=== PATIENT | male | born 1960 | race Caucasian/White ===

== ENCOUNTER 2020-03-25 17:57 | Inpatient (IN) | payer OTHER ==
[2020-03-25 21:26] LABS: BASO % 0.6 % (0-2.0); EOS % 1.1 % (0-4.5); HEMATOCRIT 35.8 % (35.4-49); HEMOGLOBIN 12.3 GM/dL (11.7-16.9); LYMPH % 13.8 % (8-40); MCH 34.8 pg (25.7-33.7); MCHC 34.4 g/dl (32.0-35.9); MEAN CELL VOLUME 101.2 fl (80-96); MEAN PLT VOLUME 7.2 fl (7.5-11.1); MONO % 11.3 % (3.8-10.2); NEUT % 73.2 % (42.8-82.8); PLATELET COUNT 261 K/MM3 (134-434); RBC 3.54 M/mm3 (4.00-5.60); RDW 13.9 % (11.9-15.9)
[2020-03-25 21:48] LABS: POTASSIUM 3.9 mmol/L (3.5-5.1)
[2020-03-25 21:50] LABS: ALBUMIN 3.4 g/dl (3.4-5.0)
[2020-03-25 21:51] LABS: BLOOD UREA NITROGEN 17.2 mg/dL (7-18); CALCIUM 8.9 mg/dL (8.5-10.1)
[2020-03-25 21:56] LABS: BILIRUBIN,TOTAL 0.2 mg/dL (0.2-1); TOT PROT 6.5 g/dl (6.4-8.2)
[2020-03-25] MEDS ORDERED: levETIRAcetam 500 MG TABLET (FP) PO ONE (23:25)
[2020-03-25] MEDS: levETIRAcetam 500 MG TABLET (FP) PO SCH (23:26)
[2020-03-26] MEDS ORDERED: levETIRAcetam 500 MG TABLET (FP) PO ONE (08:45)
[2020-03-26] MEDS: levETIRAcetam 500 MG TABLET (FP) PO SCH ×2 (09:00→21:54)
[2020-03-26] MEDS ORDERED: HALOPERIDOL LACTATE 5 MG/ML IM ONE ×2 (09:19→10:45)
[2020-03-26] MEDS ORDERED: HALOPERIDOL LACTATE 5 MG/ML ONE (09:24)
[2020-03-26] MEDS ORDERED: LORazepam 2 MG/ML SDV VIAL IM ONE (10:45)
[2020-03-26] MEDS ORDERED: LORazepam 2 MG/ML SDV VIAL ONE (10:48)
[2020-03-26] MEDS ORDERED: LORazepam 2 MG/ML SDV VIAL IM PRN (13:22)
[2020-03-26 14:55] VITALS: BMI 27.6
[2020-03-26 19:00] LABS: BASO % 0.4 % (0-2.0); EOS % 1.6 % (0-4.5); HEMATOCRIT 36.1 % (35.4-49); HEMOGLOBIN 12.3 GM/dL (11.7-16.9); LYMPH % 15.4 % (8-40); MCH 34.5 pg (25.7-33.7); MEAN CELL VOLUME 101.5 fl (80-96); MEAN PLT VOLUME 7.6 fl (7.5-11.1); MONO % 14.6 % (3.8-10.2); PLATELET COUNT 254 K/MM3 (134-434); RBC 3.55 M/mm3 (4.00-5.60); RDW 14.1 % (11.9-15.9); WHITE BLOOD COUNT 9.9 K/mm3 (4.0-10.0)
[2020-03-26] MEDS ORDERED: PT OWN MED DRAWER 7, Y5N ONE (21:31)
[2020-03-26] MEDS: OLANZapine 5 MG TABLET PO SCH (21:54)
[2020-03-26] MEDS ORDERED: OLANZapine 7.5 MG TABLET PO SCH (22:00)
[2020-03-27] MEDS ORDERED: PT OWN MED DRAWER 7, Y5N ONE ×2 (10:04→21:03)
[2020-03-27] MEDS: OXcarbazepine 300 MG TABLET (UD) PO SCH ×2 (10:58→21:52)
[2020-03-27] MEDS: VENLAFAXINE HCL 75 MG E.R. CAPSULES PO SCH (10:58)
[2020-03-27] MEDS: ATORVASTATIN CA 20 MG TABLET (FP) PO SCH (21:52)
[2020-03-27] MEDS: OLANZapine 5 MG TABLET PO SCH (21:52)
[2020-03-28] MEDS: OXcarbazepine 300 MG TABLET (UD) PO SCH ×2 (10:10→23:04)
[2020-03-28] MEDS: VENLAFAXINE HCL 75 MG E.R. CAPSULES PO SCH (10:11)
[2020-03-28] MEDS ORDERED: ACETAMINOPHEN 500 MG TABLET (FP) PO PRN (18:14)
[2020-03-28] MEDS ORDERED: PT OWN MED DRAWER 7, Y5N ONE (23:01)
[2020-03-28] MEDS: ATORVASTATIN CA 20 MG TABLET (FP) PO SCH (23:03)
[2020-03-28] MEDS: OLANZapine 5 MG TABLET PO SCH (23:04)
[2020-03-29 07:11] VITALS: TEMP 97.8
[2020-03-29] MEDS: OXcarbazepine 300 MG TABLET (UD) PO SCH (10:02)
[2020-03-29] MEDS: VENLAFAXINE HCL 75 MG E.R. CAPSULES PO SCH (10:03)
[2020-03-29 11:37] VITALS: BP 180/100; PULSE 68
[2020-03-29] MEDS ORDERED: levETIRAcetam 500 MG TABLET (FP) PO SCH (22:00)
[2020-03-30] MEDS ORDERED: PATIENT'S OWN MEDICATION (NON-FORMULARY) (Amlodipine/Valsartan/Hcthiazid [Amlod-Valsa-Hctz PO SCH (10:00)
== END 2020-03-29 14:38 | disposition left against medical advice (07) | DRG 884 ==
LOC: JER 17:57 → JERBED 20:43 → J5S 03-26 12:40
PROVIDERS: ADMIT Hospitalist; ATTEND Internal Medicine
DX: R45.1 Restlessness and agitation (principal); C71.9 Malignant neoplasm of brain, unspecified; F20.9 Schizophrenia, unspecified; F69 Unspecified disorder of adult personality and behavior; R56.9 Unspecified convulsions; M54.16 Radiculopathy, lumbar region; D72.829 Elevated white blood cell count, unspecified; I16.0 Hypertensive urgency; F41.8 Other specified anxiety disorders
CPT/HCPCS: 36415; 80053; 82607; 84443; 85025; 86780; 93005; 93010; 97116-GP; 97162-GP; 99285-25; C9803; U0003